=== PATIENT | male | born 2000 | race Caucasian/White ===

== ENCOUNTER 2021-03-29 14:31 | Emergency (ER) | payer OTHER ==
[~2021-03-29] VITALS: Ht 177.8 cm; Wt 75.7 kg
== END 2021-03-29 16:54 | disposition home or self-care (01) ==
LOC: ED 14:31
DX: H10.9 Unspecified conjunctivitis (principal)

== ENCOUNTER 2024-09-28 13:54 | Emergency (ER) | payer SELFPAY ==
[~2024-09-28] VITALS: Ht 180.3 cm; Wt 79.4 kg
[2024-09-28] MEDS ORDERED: Acetaminophen/Hydrocodone 5 MG/325 MG TABLET PO ONE (14:10)
[2024-09-28] MEDS ORDERED: Amoxicillin/Clavulanate Pota 875 MG TAB PO ONE (14:10)
[2024-09-28] MEDS ORDERED: AMOX-CLAV 875-1 EACH PO (14:22)
== END 2024-09-28 14:10 | disposition home or self-care (01) ==
LOC: ED 13:54
DX: K04.7 Periapical abscess without sinus (principal)